=== PATIENT | male | born 1980 | race Caucasian/White ===

== ENCOUNTER 2016-09-27 13:34 | Emergency (ER) | payer OTHER ==
[~2016-09-27] VITALS: Ht 180.3 cm; Wt 80.0 kg
[~2016-09-27 13:34] MED LIST: LAMI200T PO; ZOFR4TAB3 SL
[2016-09-27 13:50] VITALS: BP 126/83; PULSE 94; RESP 17; TEMP 102.9; O2SAT 99
[2016-09-27] MEDS ORDERED: KETOROLAC TROMETHAMINE 60 MG/2 ML (IM) VIAL IM ONE (15:15)
[2016-09-27] MEDS ORDERED: ACETAMINOPHEN 500 MG CPLT PO ONE (15:15)
[2016-09-27 15:20] VITALS: BP 124/78; PULSE 101; RESP 16; TEMP 99.4; O2SAT 97
--- NOTE | 2016-09-27 15:54 | PD ---
HPI Chief Complaint: Cold / Flu Symptoms Time Seen by Provider: 14:56 Travel History International Travel<30 days: No Contact w/Intl Traveler<30days: No Traveled to known affect area: No History of Present Illness HPI This patient complains of fever and cough and congestion and diffuse body aches. Duration 2 days. Severity of symptoms is moderate. PFSH Past Medical History Diminished Hearing: No Headaches: Yes (MIGRAINES) Seizures: Yes Influenza Vaccination: No Past Surgical History Appendectomy: Yes Eye Surgery: Yes (EYELID) Social History Alcohol Use: No Tobacco Use: Yes (09/11 PPD) Substance Use: No Allergies-Medications (Allergen,Severity, Reaction): Coded Allergies: No Known Allergies (Unverified , 09/27/16) Reported Meds & Prescriptions Reported Meds & Active Scripts Active No Active Prescriptions or Reported Medications Review of Systems General / Constitutional: Positive: Fever HENT: Positive: Headaches Cardiovascular: No: Chest Pain or Discomfort Respiratory: Positive: Cough Physical Exam Narrative GENERAL: Well-nourished, well-developed patient in no apparent distress. SKIN: Warm and dry. HEAD: Atraumatic. Normocephalic. EYES: Pupils equal and round. No scleral icterus. No injection or drainage. ENT: No nasal bleeding or discharge. Mucous membranes pink and moist. Throat clear NECK: Trachea midline. No JVD. No meningeal signs CARDIOVASCULAR: Regular rate and rhythm. No murmur appreciated. RESPIRATORY: No accessory muscle use. Clear to auscultation. Breath sounds equal bilaterally. GASTROINTESTINAL: Abdomen soft, non-tender, nondistended. Hepatic and splenic margins not palpable. MUSCULOSKELETAL: No obvious deformities. No clubbing. No cyanosis. No edema. NEUROLOGICAL: Awake and alert. No obvious cranial nerve deficits. Motor grossly within normal limits. Normal speech. PSYCHIATRIC: Appropriate mood and affect; insight and judgment normal. Data Data Last Documented VS Vital Signs Date Time Temp Pulse Resp B/P Pulse Ox O2 Delivery O2 Flow Rate FiO2 09/27/16 15:20 99.4 101 16 124/78 97 Room Air Orders Influenzae A/B Antigen (09/27/16 13:53) Ketorolac Inj (Toradol Inj) (09/27/16 15:15) Acetaminophen (Tylenol) (09/27/16 15:15) MDM Medical Decision Making Medical Screen Exam Complete: Yes Emergency Medical Condition: Yes Medical Record Reviewed: Yes Differential Diagnosis Flu syndrome, pneumonia, bronchitis Narrative Course I have reviewed the patient's electronic medical record. Secretions were obtained and sent to lab which are positive for influenza A I gave him a dose of Tylenol and Toradol injection Discussed supportive care No indication for antibiotics Gradual resolution of symptoms is expected Diagnosis Primary Impression: Influenza A Additional Instructions: The patient was advised to follow up with their physician and return if they worsen. Med/Other Pt SpecificInfo: Other Scripts No Active Prescriptions or Reported Meds Disposition: 01 DISCHARGE HOME Condition: Stable Scar Barriga MD Sep 27, 2016 15:54
== END 2016-09-27 16:11 | disposition home or self-care (01) ==
LOC: PHED 13:34
DX: J10.1 Influenza due to other identified influenza virus with other respiratory manifestations (principal); F17.210 Nicotine dependence, cigarettes, uncomplicated
CPT/HCPCS: 87804; 96372; 99283; J1885